=== PATIENT | female | born 1995 | race African-American/Black ===

== ENCOUNTER 2018-04-09 13:04 | Emergency (ER) | payer OTHER ==
[~2018-04-09] VITALS: Ht 162.6 cm; Wt 128.4 kg
[~2018-04-09 13:04] MED LIST: AFRIN NASAL SPR30 ML NASAL; ALBUTEROL SULF8.5 GM INH; AMOXICILLIN500 MG ORAL; AUGMENTIN 875-1 EAC1 ORAL; AZITHROMYCIN250 MG ORAL; BENADRYL25 MG ORAL; CIPRO500 MG PO; CLARITIN10 M2 ORAL; CLINDAMYCIN HC150 MG ORAL; CORTISPORIN EAR10 ML OTIC; CYCLOBENZAPRINE10 MG ORAL; DIFLUCAN150 MG PO; DOXYCYCLINE MO100 MG ORAL; HYDROCODON-ACE1 EA15 ORAL; IBUPROFEN600 MG ORAL; IBUPROFEN600 MG PO; IBUPROFEN800 MG ORAL; ILOTYCIN3.5 GM CONJUNC; KEFLEX500 MG ORAL; LEVAQUIN250 M1 ORAL; MACROBID100 MG ORAL; MEDROL DOSEPAK4 MG ORAL; MOBIC15 MG ORAL; NKM; NORCO 5-325 TA1 EACH ORAL; PERCOCET 5-3251 EACH ORAL; PHENAZOPYRIDIN200 MG ORAL; POLYTRIM OP SOL10 ML OPHTHALM; PREDNISONE20 MG ORAL; PROMETHAZINE-C118 M1 ORAL; PROMETHAZINE-D118 ML ORAL; RANITIDINE HCL150 MG ORAL; ZOFRAN ODT4 MG ORAL; ZOFRAN4 MG ORAL
--- NOTE | 2018-04-09 13:15 | NUR ---
ED Nurse Note: Patient came to ED c/o of vaginal burning, patient states that her and her partner had intercourse using cocoa butter 1 week ago, patient reports no disharge or bleeding, just a burning sensation down there. patient is alert and oriented x4, ambulatory with a steady gait, VSS
[2018-04-09 13:20] VITALS: BP 114/57
[2018-04-09 14:14] LABS: APPEARANCE,URINE SLIGHTLY CLOUDY; BILIRUBIN, URINE NEGATIVE (NEGATIVE); COLOR,URINE PALE YELLOW; GLUCOSE, URINE (UA) NEGATIVE (NEGATIVE); KETONES,URINE 1+ (NEGATIVE); LEUKOCYTE ESTERASE ,URINE 2+ (NEGATIVE); NITRITE,URINE NEGATIVE (NEGATIVE); PH,URINE 6.5 (4.5-8.0); PROTEIN,URINE NEGATIVE (NEGATIVE); UROBILINOGEN,URINE NORMAL MG/DL (0.0-1.0)
[2018-04-09 14:30] VITALS: BP 120/62
[2018-04-09] MEDS ORDERED: CIPROFLOXACIN500 M2 ORAL (14:35)
--- NOTE | 2018-04-09 14:36 | Emergency Room Report ---
History of Present Illness General Chief Complaint: Vaginal Source: Medical Record Present Illness HPI This is a 23-year-old female who was having intercourse with her and started having immediate sensation of burning. According to the patient, the put cocoa butter on his penis prior to intercourse. She denies any other associated symptoms. This happened last night. No back pain. No abdominal pain. No vaginal discharge. Allergies: Coded Allergies: PEANUT (Unverified Allergy, Unknown, 08/14/15) Uncoded Allergies: PEANUTS (Allergy, Unknown, 08/14/15) Patient History Past Surgical History: none Pertinent Family History: none Now: No Nursing Documentation-PMH Hx Gastrointestinal Problems: No - procedure & IUD 03/2014 Review of Systems All Other Systems: negative except mentioned in HPI Physical Exam Vital Signs Date Time Temp Pulse Resp B/P (MAP) Pulse Ox O2 Delivery O2 Flow Rate FiO2 04/09/18 13:12 98.1 86 20 114/57 100 Room Air General Appearance: normal inspection Neck: normal inspection Respiratory: normal inspection, lungs clear Gastrointestinal: normal inspection, non tender, soft Genitourinary: other - With the female occupational health technician, a pelvic exam was performed. I see no vaginal bleeding. I see no adnexal mass. Nontender. There is no surrounding erythema. There is no lesions. Neurologic: alert, oriented x3 Skin: normal inspection Medical Decision Making Diagnostic Impression: Primary Impression: UTI (urinary tract infection) ER Course Patient alert and nontoxic appearing. She does have an abnormal urinalysis. We will treat patient empirically. I see no evidence of cervicitis or pelvic inflammatory disease. She no evidence of tubo-ovarian abscess. The patient is afebrile. Laboratory Tests Test 04/09/18 13:56 Urine Color Pale yellow Urine Appearance Slightly cloudy Urine pH 6.5 (4.5-8.0) Urine Specific [place] 1.010 (1.005-1.035) Urine Protein Negative (NEGATIVE) Urine Glucose (UA) Negative (NEGATIVE) Urine Ketones 1+ (NEGATIVE) H Urine Blood 1+ (NEGATIVE) H Urine Nitrite Negative (NEGATIVE) Urine Bilirubin Negative (NEGATIVE) Urine Urobilinogen Normal MG/DL (0.0-1.0) Urine Leukocyte Esterase 2+ (NEGATIVE) H Urine RBC 0-2 /HPF (0 - 2) Urine WBC 5-10 /HPF (0 - 2) H Urine Squamous Epithelial Cells Many /LPF (NONE/OCC) H Urine Bacteria Few /HPF (NONE) Urine Trichomonas Few /HPF (NONE) H Urine HCG, Qualitative Negative (NEGATIVE) Last Vital Signs Date Time Temp Pulse Resp B/P (MAP) Pulse Ox O2 Delivery O2 Flow Rate FiO2 04/09/18 13:20 98.1 85 20 114/57 100 Room Air Disposition: HOME, SELF-CARE Condition: Stable Scripts Ciprofloxacin Hcl* (CIPROFLOXACIN HCL*) 500 Mg Tablet 500 MG ORAL Q12H for 3 Days, #6 TAB 0 Refills Prov: МАРИЯ GUERRERO 04/09/18 Referrals: [facility]ERR[facility] (PCP) Patient Instructions: Acute Urinary Retention, Female, [id number] МАРИЯ GUERRERO Apr 09, 2018 14:36
--- NOTE | 2018-04-09 16:30 | NUR ---
ER DISCHARGE NOTE: Patient is cleared to be discharged per ERMD, pt is aox4, on room air, with stable vital signs. pt was given dc and prescription instructions, pt was able to verbalize understanding, pt id band removed pt is able to ambulate with steady gait. pt took all belongings.
== END 2018-04-09 16:30 | disposition home or self-care (01) ==
LOC: EMR 13:57
DX: N39.0 Urinary tract infection, site not specified (principal); Z91.010 Allergy to peanuts
CPT/HCPCS: 81001; 81025; 99283